=== PATIENT | female | born 1965 | race African-American/Black ===

== ENCOUNTER 2022-07-09 14:42 | Emergency (ER) | payer SELFPAY ==
[2022-07-09 15:01] VITALS: BP 137/85; PULSE 78; RESP 20; TEMP 35.9; O2SAT 99; BMI 26.6
--- NOTE | 2022-07-09 15:28 | ED_ITS ---
HPI - Extremity Problem <RACHNA Walker - Last Filed: 07/09/22 17:49> General Chief complaint: Extremity Problem,Nontraumatic Stated complaint: Swelling in Right Hand, Crohn's Bothering Time Seen by Provider: 07/09/22 15:08 Source: patient Mode of arrival: Family Vehicle History of Present Illness HPI Narrative: This is a 56-year-old female with history of Crohn's disease who presents to the emergency department complaining of right 1st finger swelling that she woke up with today with a ring stuck on her finger and then also states that she wants somebody to check her anal fissure. Patient states that she had surgery 1 month ago for her Crohn's and she has had ongoing rectal pain. States that she is had perianal pruritus and discomfort in that region. She denies any nausea, vomiting, fever or chills. States that she is completed 2 courses of antibiotics, states that she had some blood in her stool, states that this is not new for her but today she had more in her stool than usual. She endorses abnormal vaginal discharge when asked about it. Related Data Previous Rx's Medication Instructions Recorded hydrocortisone acetate 25 mg 25 mg MT BEDTIME PRN anal 07/09/22 rectal suppository itching/bleeding/pain #12 ea metronidazole 500 mg tablet 500 mg PO BID 7 days #14 tabs 07/09/22 Review of Systems <RACHNA Walker - Last Filed: 07/09/22 17:49> Review of Systems Narrative: Review of systems is negative for acute abnormalities unless otherwise noted in HPI Patient History <RACHNA Walker - Last Filed: 07/09/22 17:49> Social History Smoking Status: Current every day smoker Smoking Status: Current every day smoker tobacco type: cigarettes alcohol intake frequency: 0-2 drinks per day Substance Use Type: does not use Exam <RACHNA Walker - Last Filed: 07/09/22 17:49> Narrative Exam Narrative: Reviewed vitals signs and nursing notes. General: cooperative, comfortable, in no acute distress, well groomed HEENT: symmetrical facial expressions, moist mucous membranes Cardiovascular: regular rate and rhythm, no peripheral edema, warm extremities Respiratory: normal effort, able to speak in complete sentences, without wheezing, stridor, or abnormal breath sounds. No retractions or tachypnea. GI: abdomen soft, nontender to palpation, nondistended, without masses, rebound tenderness or exquisite tenderness with exam. MSK: moves all extremities, neurovascularly intact, no weakness, normal tone Rectal/: Patient has thick white vaginal discharge, no surrounding rash, wound, excoriation, blood or other. Some stool present in rectal vault, no surrounding erythema or exquisite tenderness Skin: brisk capillary refill, without pallor or erythema Neuro: normal speech and cognition, A&O x3, ambulatory, clear speech Psych: mental status is grossly normal, congruent mood, normal affect, pleasant and cooperative Initial Vital Signs Initial Vital Signs: Vital Signs Temperature 96.7 F L 07/09/22 15:01 Pulse Rate 78 07/09/22 15:01 Respiratory Rate 20 07/09/22 15:01 Blood Pressure 137/85 07/09/22 15:01 Pulse Oximetry 99 07/09/22 15:01 Oxygen Delivery Method 07/09/22 15:01 <Karthik Ledesma DO - Last Filed: 07/09/22 18:04> Initial Vital Signs Initial Vital Signs: Vital Signs Temperature 96.7 F L 07/09/22 15:01 Pulse Rate 78 07/09/22 15:01 Respiratory Rate 20 07/09/22 15:01 Blood Pressure 137/85 07/09/22 15:01 Pulse Oximetry 99 07/09/22 15:01 Oxygen Delivery Method 07/09/22 15:01 Course <RACHNA Walker - Last Filed: 07/09/22 17:49> Orders Ordered: ED Orders 07/09/22 15:27 Wet Prep Tric BV Leah Stat 07/09/22 15:29 XR finger RT min 2V Stat 07/09/22 16:00 Chlamydia Gonorrhea PCR -URINE Stat Urine Microscopic Stat Discontinued Medications Hydrocortisone (Hydrocortisone 25 Mg Supp) 25 mg MT NOW ONE Stop: 07/09/22 16:25 Last Admin: 07/09/22 16:38 Dose: 25 mg Documented By: DOUGLAS Ketorolac Tromethamine (Ketorolac 10 Mg Tablet) 10 mg PO NOW ONE Stop: 07/09/22 15:55 Last Admin: 07/09/22 16:06 Dose: 10 mg Documented By: DOUGLAS Metronidazole (Metronidazole 500 Mg Tablet) 500 mg PO NOW ONE Stop: 07/09/22 15:54 Last Admin: 07/09/22 16:06 Dose: 500 mg Documented By: DOUGLAS Reevaluation(s) Reevaluation #1: [facility] CLIA ID [id number] [address] [place] [address] RUN DATE: 07/09/22 Specimen Inquiry PAGE 1 RUN TIME: 162 Name: Corey Cadet Age/Sex: 56/F Attend Dr: Nova Everett Unit#: [id number] : [id number]: ED Re07/09/22 Disch: Status: REG ER SPEC #: [id number] KEMAR: 07/09/22 STATUS: COMP REQ #: [id number] SPDESC: RECD: 07/09/[address]: Nova Everett SOURCE: Vaginal ENTR: 07/09/[address]: Tavon,Doctor FAX TO: ORDERED: Wet Prep Procedure Result Verified Site Wet Prep Tric BV Leah Final 07/09/221532 White blood cells Few WBCs Clue cells: Moderate Yeast: None seen Trichomonas: None seen Vital Signs Vital signs: Vital Signs - 8 hr 07/09/22 15:01 07/09/22 16:49 Temperature 96.7 F L Pulse Rate 78 80 Respiratory Rate 20 18 Blood Pressure 137/85 114/70 Pulse Oximetry 99 98 Oxygen Delivery Method Room Air <Karthik Ledesma DO - Last Filed: 07/09/22 18:04> Orders Ordered: ED Orders 07/09/22 15:27 Wet Prep Tric BV Leah Stat 07/09/22 15:29 XR finger RT min 2V Stat 07/09/22 16:00 Chlamydia Gonorrhea PCR -URINE Stat Urine Microscopic Stat Discontinued Medications Hydrocortisone (Hydrocortisone 25 Mg Supp) 25 mg MT NOW ONE Stop: 07/09/22 16:25 Last Admin: 07/09/22 16:38 Dose: 25 mg Documented By: DOUGLAS Ketorolac Tromethamine (Ketorolac 10 Mg Tablet) 10 mg PO NOW ONE Stop: 07/09/22 15:55 Last Admin: 07/09/22 16:06 Dose: 10 mg Documented By: DOUGLAS Metronidazole (Metronidazole 500 Mg Tablet) 500 mg PO NOW ONE Stop: 07/09/22 15:54 Last Admin: 07/09/22 16:06 Dose: 500 mg Documented By: DOUGLAS Vital Signs Vital signs: Vital Signs - 8 hr 07/09/22 15:01 07/09/22 16:49 Temperature 96.7 F L Pulse Rate 78 80 Respiratory Rate 20 18 Blood Pressure 137/85 114/70 Pulse Oximetry 99 98 Oxygen Delivery Method Room Air MDM - Extremity (Nontraumatic) <Nova Everett, [facility] - Last Filed: 07/09/22 17:49> Lab Data Labs: Lab Results 07/09/22 07/09/22 Range/Units 16:00 16:00 Urine RBC None seen (0-5/HPF) Urine WBC 0-1/hpf (0-5/HPF) Ur Squamous Epith Cells 5-10 /hpf H (0-5/HPF) Amorphous Sediment 1+ Urine Bacteria None seen (None) Ur Culture Indicated? Cult not indicated Ur Chlamydia DNA (PCR) Not detected N gonorrhoeae DNA (PCR) Not detected Imaging Data Extremity x-ray #1: Radiologist's Impression: PROCEDURE:? XR FINGER RT MIN 2V ? INDICATIONS:? swollen MIP joint, no trauma ? TECHNIQUE:? AP hand, 2 views of the 2nd finger(s) acquired.? ? COMPARISON:? None. ? FINDINGS:? ? Bones:? No acute fractures or dislocations.? Small well corticated ossicle adjacent to the 2nd digit DIP joint.? This has the appearance of an osteophyte or prior fractured osteophyte.? No suspicious bony lesions.? ? Soft tissues:? There is mild swelling at the 2nd digit PIP joint.? No suspicious soft tissue calcifications.? ? IMPRESSION:? No definite acute fracture.? Small ossicle which may be the sequelae of prior fracture or osteophyte adjacent to the 2nd digit DIP joint. ? Mild swelling at the 2nd digit PIP joint.? Dictated by: Corey Gill M.D. on 07/09/2022 at 16:06 ? ? Approved by: Corey Gill M.D. on 07/09/2022 at 16:12 ? MDM Narrative Medical decision making narrative: This is a 56-year-old female to the emergency for a swollen that she woke up today known, then states she wants her anal fissure checked due to during this discussion she endorses abnormal vaginal discharge when asked, a wet mount was obtained which is positive for clue cells, she has thick white vaginal discharge which patient describes pruritic. X-ray of her 2nd finger shows mild swelling at the 2nd digit PIP joint. Patient's UA does not show wbc's, bacteria, or RBCs, only squamous epithelial cells. Urine chlamydia and gonorrhea via PCR is negative for both. Patient was treated with 500 mg of metronidazole b.i.d. for the next 7 days for bacterial vaginosis. She was given a hydrocortisone rectal suppository for rectal pain and itching. Recommend that patient stay hydrated, use Tylenol and ibuprofen as needed for pain, take her antibiotic until it is gone and return for any new or worsening symptoms. Patient is appropriate and amenable to discharge home. Vital signs are stable on repeat examination is unremarkable. Patient has been informed of results. Patient has been given strict return to ER precautions for any new or worsening symptoms. Patient understands to follow up closely with outpatient providers as instructed. Patient understands plan and agrees to discharge home. All questions and concerns answered at this time. <Karthik Ledesma, DO - Last Filed: 07/09/22 18:04> Lab Data Labs: Lab Results 07/09/22 07/09/22 Range/Units 16:00 16:00 Urine RBC None seen (0-5/HPF) Urine WBC 0-1/hpf (0-5/HPF) Ur Squamous Epith Cells 5-10 /hpf H (0-5/HPF) Amorphous Sediment 1+ Urine Bacteria None seen (None) Ur Culture Indicated? Cult not indicated Ur Chlamydia DNA (PCR) Not detected N gonorrhoeae DNA (PCR) Not detected Discharge Plan Departure Patient Disposition: Home Clinical Impression: Bacterial vaginosis, Anal or rectal pain Instructions: Bacterial Vaginosis Activity Restrictions/Additional Instructions: *You have been diagnosed with bacterial vaginosis. This is an overgrowth of in your vagina and can cause symptoms of itching. I have sent you an antibiotic to help treat this, this will hopefully be helpful. Please use the hydrocortisone suppositories as needed for your rectal pain, hopefully this helps with any bleeding. Please follow-up with your regular doctor as needed or if you have any worsening from your surgery symptoms please follow-up with that doctor. I hope that you feel better soon, take ibuprofen as needed for inflammation, stay hydrated, you can use Tylenol as needed for pain as well. I wish you the best, thank you for coming in for evaluation. *What to do: *Please continue to take your regular medications as directed. [x ] New medication prescriptions sent to your pharmacy: [[facility] ] [ ] New medication written as a paper prescription [ ] No new medications given *Please follow up with your primary care provider in 2-3 days, call for an appointment. Let them know you were seen in the Emergency Department and that we asked that you be seen for follow-up. We will electronically transmit a record of today's note if your PCP is in our system *If you do not have a primary care provider please contact [phone] to establish care with one of the [facility] primary care providers. *Return to Emergency Department if you should have any new, worsening, or concerning symptoms, such as [fever greater than 101F, chills, worsening pain, persistent vomiting or other bothersome symptoms]. Prescriptions: New metronidazole 500 mg tablet 500 mg PO BID 7 Days Qty: 14 0RF hydrocortisone acetate 25 mg suppository 25 mg MT BEDTIME PRN (Reason: anal itching/bleeding/pain) Qty: 12 0RF Referrals: Miscellaneous,Doctor, MD [Primary Care Provider] - Visit Report Forms: Patient Portal/API <Karthik Ledesma, DO - Last Filed: 07/09/22 18:04> [facility] Attestation: Dr Ledesma Co-Sign Statement: I was available for consultation during this patient's emergency department visit. This chart is signed by myself for administrative purposes only. I did not have direct contact with this patient during this visit. They were seen independently by the APC.
--- NOTE | 2022-07-09 15:29 | DI.RAD.S_ITS ---
PROCEDURE: XR FINGER RT MIN 2V INDICATIONS: swollen MIP joint, no trauma TECHNIQUE: AP hand, 2 views of the 2nd finger(s) acquired. COMPARISON: None. FINDINGS: Bones: No acute fractures or dislocations. Small well corticated ossicle adjacent to the 2nd digit DIP joint. This has the appearance of an osteophyte or prior fractured osteophyte. No suspicious bony lesions. Soft tissues: There is mild swelling at the 2nd digit PIP joint. No suspicious soft tissue calcifications. IMPRESSION: No definite acute fracture. Small ossicle which may be the sequelae of prior fracture or osteophyte adjacent to the 2nd digit DIP joint. Mild swelling at the 2nd digit PIP joint. Dictated by: Corey Gill M.D. on 07/09/2022 at 16:06 Approved by: Corey Gill M.D. on 07/09/2022 at 16:12
[2022-07-09] MEDS: metroNIDAZOLE 500 MG TABLET PO (16:06)
[2022-07-09] MEDS: KETOROLAC 10 MG TABLET PO (16:06)
[2022-07-09 16:20] LABS: RBC Urine None Seen (0-5/HPF)
[2022-07-09 16:21] LABS: Amorphous Sediment Urine 1+; Bacteria Urine None Seen; Culture Indicated Urine Cult Not Indicated; Squamous Epithelial Cell Urine 5-10 /HPF (0-5/HPF); WBC Urine 0-1/HPF (0-5/HPF)
[2022-07-09] MEDS: HYDROCORTISONE 25 MG SUPP PR (16:38)
[2022-07-09 16:49] VITALS: BP 114/70; PULSE 80; RESP 18; O2SAT 98
[2022-07-09 17:38] LABS: Urine N gonorrhoeae NOT DETECTED
[2022-07-09 17:42] LABS: Urine Chlamydia NOT DETECTED
== END 2022-07-09 17:50 | disposition home or self-care (01) ==
PROVIDERS: Emergency Provider Nurse Practitioner Critical Care Medicine
DX: N76.0 Acute vaginitis (principal); K62.89 Other specified diseases of anus and rectum
CPT/HCPCS: 73140; 81015; 87210; 87491; 87591; 99283

== ENCOUNTER 2022-07-15 11:52 | Emergency (ER) | payer SELFPAY ==
[2022-07-15 11:59] VITALS: BP 142/85; PULSE 72; RESP 15; TEMP 36.4; O2SAT 100; BMI 26.6
--- NOTE | 2022-07-15 14:32 | PC.NURSE ---
pt was here a few days ago and was unable to fill Rx for antibiotic, she has returned to speak with social worker aide about affording medications to help dental pain
[2022-07-15] MEDS: HYDROCORTISONE 25 MG SUPP PR (15:03)
[2022-07-15] MEDS: metroNIDAZOLE 500 MG TABLET 2000 MG PO (15:03)
[2022-07-15] MEDS: KETOROLAC 10 MG TABLET PO (15:03)
[2022-07-15] MEDS: PENICILLIN VK 250 MG TABLET 500 MG PO (15:03)
--- NOTE | 2022-07-15 15:26 | CM.SWNOTE ---
AIRWAY CONTROLLER Note Patient is 56 y/o female who presents to ED due to dental pain. Patient presented to ED on 07/09/22 regarding anal and rectal pain. Since ED visit on 07/09/22 patient has been contacting registration, ED, and quality assurance director regarding her not being able to afford rx. Patient does not have current PCP, reports she is visiting this area from [place] and plans to return to [place] soon. Patient does not have insurance and states that she plans to apply for state insurance in [place]. Per registration, patient completed financial support application. ED provider RACHNA Sosa prints out discounted prescription coupons for all of patient's prescriptions upon patient's d/c. AIRWAY CONTROLLER is present during this conversation and patient indicates agreement and understanding. Plan: Patient to d/c to home upon medical clearance, patient provided discounted rx for patient's medical needs for both ED visits. Patient to f/u with establishing insurance, PCP and dental care. Patient provided with information for [facility]. VIKTORIA DarnellSW
--- NOTE | 2022-07-15 18:50 | ED_ITS ---
HPI - Dental/Oral <RACHNA Walker - Last Filed: 07/15/22 19:39> General Chief complaint: Dental/Oral Stated complaint: Lt. 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 Review of these medications, it appears that the hydrocortisone suppositories were the most expensive, she only received 1 dose of Flagyl in the emergency department that day for bacterial vaginosis. She denies any fever chills, denies nausea or vomiting. Related Data Previous Rx's Medication Instructions Recorded hydrocortisone acetate 25 mg 25 mg TN BEDTIME PRN anal 07/09/22 rectal suppository itching/bleeding/pain #12 ea hydrocortisone 1 % topical cream 1 applic TN BID PRN hemorrhoids 07/15/22 with perineal applicator #28.4 grams metronidazole 500 mg tablet 500 mg PO BID 7 days #14 tabs 07/15/22 penicillin V potassium 500 mg 500 mg PO BID 7 days #14 tabs 07/15/22 tablet Allergies Allergy/AdvReac Type Severity Reaction Status Date / Time No Known Drug Allergies Allergy Verified 07/15/22 12:01 Review of Systems <RACHNA Walker - Last Filed: 07/15/22 19:39> Review of Systems Narrative: Review of systems is negative for acute abnormalities unless otherwise noted in HPI Patient History <RACHNA Walker - Last Filed: 07/15/22 19:39> Social History Smoking Status: Current every day smoker Smoking Status: Current every day smoker tobacco type: cigarettes alcohol intake frequency: holidays/special occasions only Substance Use Type: does not use Exam <RACNHA Walker - Last Filed: 07/15/22 19:39> Narrative Exam Narrative: Reviewed vitals signs and nursing notes. General: cooperative, comfortable, in no acute distress, well groomed HEENT: symmetrical facial expressions, moist mucous membranes, poor dentition, concern for possible abscess on the left cheek but no erythema, tenderness, fever, or intraoral swelling, without fluctuance or drainage Cardiovascular: regular rate and rhythm, no peripheral edema, warm extremities Respiratory: normal effort, able to speak in complete sentences, without wheezing, stridor, or abnormal breath sounds. No retractions or tachypnea. GI: abdomen soft, nontender to palpation, nondistended, without masses, rebound tenderness or exquisite tenderness with exam. MSK: moves all extremities, neurovascularly intact, no weakness, normal tone Skin: brisk capillary refill, without pallor or erythema Neuro: normal speech and cognition, A&O x3, ambulatory, clear speech Psych: mental status is grossly normal, congruent mood, normal affect, pleasant and cooperative Initial Vital Signs Initial Vital Signs: Vital Signs Temperature 97.5 F L 07/15/22 11:59 Pulse Rate 72 07/15/22 11:59 Respiratory Rate 15 07/15/22 11:59 Blood Pressure 142/85 H 07/15/22 11:59 Pulse Oximetry 100 07/15/22 11:59 Oxygen Delivery Method 07/15/22 11:59 <Eros Rivera MD - Last Filed: 07/16/22 07:04> Initial Vital Signs Initial Vital Signs: Vital Signs Temperature 97.5 F L 07/15/22 11:59 Pulse Rate 72 07/15/22 11:59 Respiratory Rate 15 07/15/22 11:59 Blood Pressure 142/85 H 07/15/22 11:59 Pulse Oximetry 100 07/15/22 11:59 Oxygen Delivery Method 07/15/22 11:59 Course <RACHNA Walker - Last Filed: 07/15/22 19:39> Orders Ordered: Discontinued Medications Amoxicillin/Clavulanate Potassium (Amoxicillin/Clav 875/125 Mg) 1 tab PO NOW ONE Stop: 07/15/22 14:35 Hydrocortisone (Hydrocortisone 25 Mg Supp) 25 mg TN NOW ONE Stop: 07/15/22 14:41 Last Admin: 07/15/22 15:03 Dose: 25 mg Documented By: NR Ketorolac Tromethamine (Ketorolac 10 Mg Tablet) 10 mg PO NOW ONE Stop: 07/15/22 14:36 Last Admin: 07/15/22 15:03 Dose: 10 mg Documented By: NR Metronidazole (Metronidazole 500 Mg Tablet) 500 mg PO NOW ONE Stop: 07/15/22 14:35 Metronidazole (Metronidazole 0.75% 45 Gm Cream) 1 applic TOP NOW ONE Stop: 07/15/22 14:41 Last Admin: 07/15/22 15:02 Dose: 1 applic Documented By: NR Metronidazole (Metronidazole 500 Mg Tablet) 2,000 mg PO NOW ONE Stop: 07/15/22 14:45 Last Admin: 07/15/22 15:03 Dose: 2,000 mg Documented By: NR Penicillin V Potassium (Penicillin Vk 250 Mg Tablet) 500 mg PO NOW ONE Stop: 07/15/22 14:45 Last Admin: 07/15/22 15:03 Dose: 500 mg Documented By: NR Vital Signs Vital signs: Vital Signs - 8 hr 07/15/22 11:59 Temperature 97.5 F L Pulse Rate 72 Respiratory Rate 15 Blood Pressure 142/85 H Pulse Oximetry 100 Oxygen Delivery Method Room Air <Eros Rivera MD - Last Filed: 07/16/22 07:04> Orders Ordered: Discontinued Medications Amoxicillin/Clavulanate Potassium (Amoxicillin/Clav 875/125 Mg) 1 tab PO NOW ONE Stop: 07/15/22 14:35 Hydrocortisone (Hydrocortisone 25 Mg Supp) 25 mg TN NOW ONE Stop: 07/15/22 14:41 Last Admin: 07/15/22 15:03 Dose: 25 mg Documented By: NR Ketorolac Tromethamine (Ketorolac 10 Mg Tablet) 10 mg PO NOW ONE Stop: 07/15/22 14:36 Last Admin: 07/15/22 15:03 Dose: 10 mg Documented By: NR Metronidazole (Metronidazole 500 Mg Tablet) 500 mg PO NOW ONE Stop: 07/15/22 14:35 Metronidazole (Metronidazole 0.75% 45 Gm Cream) 1 applic TOP NOW ONE Stop: 07/15/22 14:41 Last Admin: 07/15/22 15:02 Dose: 1 applic Documented By: NR Metronidazole (Metronidazole 500 Mg Tablet) 2,000 mg PO NOW ONE Stop: 07/15/22 14:45 Last Admin: 07/15/22 15:03 Dose: 2,000 mg Documented By: NR Penicillin V Potassium (Penicillin Vk 250 Mg Tablet) 500 mg PO NOW ONE Stop: 07/15/22 14:45 Last Admin: 07/15/22 15:03 Dose: 500 mg Documented By: NR Vital Signs Vital signs: Vital Signs - 8 hr 07/15/22 11:59 Temperature 97.5 F L Pulse Rate 72 Respiratory Rate 15 Blood Pressure 142/85 H Pulse Oximetry 100 Oxygen Delivery Method Room Air [facility] - Dental/Oral <Nova Everett [facility] - Last Filed: 07/15/22 19:39> [facility] Narrative Medical decision making narrative: This is a 56-year-old female presents to the emergency department complaining of inability to 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 She also complains of left-sided dental pain. She has chronic poor dentition, missing teeth, with dental decay and likely dental infection. For this she was treated today with penicillin VK b.i.d. for 7 days, she was given a prescription of Flagyl to [facility] with a coupon from [facility] and also given Flagyl 2 g today with hopes of treatment. She was given an intravaginal treatment to take home and use any couple days if the Flagyl did not cure her bacterial vaginosis infection. She has complained of ongoing anal itching and pain due to her anal fissures, she was given a hydrocortisone suppository today and prescribed hydr ocortisone cream with an applicator to use, she was given coupons for all of her medications from [facility] and can pick them up at [facility] for total cost less than 20 dollars. She was given Toradol today for her pain and her 1st dose of antibiotics. I encouraged her to stay hydrated, follow-up at the [facility] for extraction and gave her an address with phone number. Patient was g rateful, from social Work saw her with me today and patient was very gracious for the care and attention. Patient is appropriate and amenable to discharge home. She is from [place], does not have any insurance. Vital signs are stable on repeat examination is unremarkable. Patient has been informed of results. Patient has been given strict return to ER precautions for any new or worsening symptoms. Patient understands to follow up closely with outpatient providers as instructed. Patient understands plan and agrees to discharge home. All questions and concerns answered at this time. Discharge Plan Departure Patient Disposition: Home Clinical Impression: Bacterial vaginosis, Anal or rectal pain, Dental infection Instructions: Bacterial Vaginosis, Tooth Decay, DI for Hemorrhoids, DI for Dental Pain Activity Restrictions/Additional Instructions: *You have been diagnosed with a dental infection and ongoing bacterial vaginosis infection. Hopefully the gave you today with all of those pills will get rid of the bacterial vaginosis but typically it is not fully treated with 1 dose. I recommend that you use the cream that we gave you for your vagina in 2-3 days or if your symptoms return. If your symptoms return, you can go sweet pickled fruit maker the metronidazole as the [facility] with a coupon. Please sweet pickled fruit maker the penicillin from [facility] with a good Rx coupon, you may take Flagyl if you have ongoing vaginal symptoms, and sweet pickled fruit maker the hydrocele cortisone cream if your hemorrhoid is giving you pain or bleeding, please use the applicator to put the cream your rectum. [facility] [phone] *What to do: *Please continue to take your regular medications as directed. [x ] New medication prescriptions sent to your pharmacy: [ [facility]] [ ] New medication written as a paper prescription [ ] No new medications given *Please follow up with your primary care provider in 2-3 days, call for an appointment. Let them know you were seen in the Emergency Department and that we asked that you be seen for follow-up. We will electronically transmit a record of today's note if your PCP is in our system *If you do not have a primary care provider please contact [phone] to [facility] with one of the [facility] primary care providers. *Return to Emergency Department if you should have any new, worsening, or concerning symptoms, such as [fever greater than 101F, chills, worsening pain, persistent vomiting or other bothersome symptoms]. Prescriptions: New metronidazole 500 mg tablet 500 mg PO BID 7 Days Qty: 14 0RF penicillin V potassium 500 mg tablet 500 mg PO BID 7 Days Qty: 14 0RF hydrocortisone 1 % cream with perineal applicator 1 applic TN BID PRN (Reason: hemorrhoids) Qty: 28.4 0RF No Action hydrocortisone acetate 25 mg suppository 25 mg TN BEDTIME PRN (Reason: anal itching/bleeding/pain) Qty: 12 0RF Referrals: Miscellaneous,Doctor, [Primary Care Provider] - Visit Report Forms: Patient Portal/API <Eros Rivera MD - Last Filed: 07/16/22 07:04> Cosign ED Attending Samsonature Attestation: I was immediately available in the department for consultation. ?This documentation has been reviewed and I agree with assessment and plan. Supervised by Eros Rivera MD
== END 2022-07-15 15:20 | disposition home or self-care (01) ==
PROVIDERS: Emergency Provider Nurse Practitioner Critical Care Medicine
DX: K04.7 Periapical abscess without sinus (principal); K62.89 Other specified diseases of anus and rectum; N76.0 Acute vaginitis
CPT/HCPCS: 99283